=== PATIENT | male | born 1955 | race Caucasian/White ===

== ENCOUNTER → 2016-12-12 | Outpatient (CLI) | payer OTHER | END | disposition home or self-care (01) | LOC: CVU 08:32 | PROVIDERS: ATTEND Nurse Practitioner | DX: I82.431 Acute embolism and thrombosis of right popliteal vein (principal); I87.2 Venous insufficiency (chronic) (peripheral); M79.89 Other specified soft tissue disorders | CPT/HCPCS: 93970 ==